=== PATIENT | male | born 1980 | race African-American/Black ===

== ENCOUNTER 2017-12-22 15:42 | Emergency (ER) | payer OTHER ==
[~2017-12-22] VITALS: Ht 172.7 cm; Wt 96.0 kg
[2017-12-22 16:02] VITALS: BP 129/70; PULSE 105; RESP 17; O2SAT 94
[2017-12-22] MEDS ORDERED: HALOPERIDOL LACTATE 5 MG/ML AMP ONE (16:02)
[2017-12-22] MEDS ORDERED: LORazepam 2 MG/ML VIAL ONE (16:03)
[2017-12-22] MEDS ORDERED: LORazepam 2 MG/ML VIAL IM ONE (16:15)
[2017-12-22] MEDS ORDERED: HALOPERIDOL LACTATE 5 MG/ML AMP IM ONE (16:15)
--- NOTE | 2017-12-22 17:24 | PD ---
HPI Chief Complaint: Psychiatric Symptoms Time Seen by Provider: 16:02 Travel History International Travel<30 days: No Contact w/Intl Traveler<30days: No Traveled to known affect area: No History of Present Illness HPI 37-year-old male came to the emergency room brought in by EMS as a Marchman act. Patient was noticed to be wandering outside unable to take care of himself. He seemed intoxicated. Patient has been combative here. He needed to be restrained for point upon arrival. I went to assess him and he was slurred speech and not making much sense. Patient is not a good historian at this point given his intoxicated state. [facility] Past Medical History Narrative Medical List of his past medical, surgical, social and family history reviewed from the nursing note. Medical History: Denies Significant Hx ?: Not Past Surgical History Surgical History: No Previous Surgery Social History Alcohol Use: Yes (DAILY) Tobacco Use: No Substance Use: No Allergies-Medications (Allergen,Severity, Reaction): Coded Allergies: amoxicillin (Verified Allergy, Unknown, 12/23/17) Comments List of his allergies reviewed from the nursing note. Reported Meds & Prescriptions Reported Meds & Active Scripts Active Active Prescriptions or Reported Medications Unobtainable Narrative Medication List of his home medications reviewed from the nursing note. Review of Systems ROS Limitations: Intoxication, Altered Mental Status Except as stated in HPI: all other systems reviewed are Neg Physical Exam Narrative GENERAL: Intoxicated, slurred speech, unable to communicate SKIN: Focused skin assessment warm/dry. HEAD: Atraumatic. Normocephalic. EYES: Pupils equal and round. No scleral icterus. No injection or drainage. ENT: No nasal bleeding or discharge. Mucous membranes pink and moist. NECK: Trachea midline. No JVD. CARDIOVASCULAR: Regular rate and rhythm. No murmur appreciated. RESPIRATORY: No accessory muscle use. Clear to auscultation. Breath sounds equal bilaterally. GASTROINTESTINAL: Abdomen soft, non-tender, nondistended. Hepatic and splenic margins not palpable. MUSCULOSKELETAL: No obvious deformities. No clubbing. No cyanosis. No edema. NEUROLOGICAL: GCS of 12. No obvious cranial nerve deficits. Motor grossly within normal limits. Slurred speech, meaningless communication PSYCHIATRIC: Unable to assess. Data Data Last Documented VS Orders Orders Haloperidol Inj (Haldol Inj) (12/22/17 16:15) Lorazepam Inj (Ativan Inj) (12/22/17 16:15) Alcohol (Ethanol) (12/22/17 16:02) Haloperidol Inj (Haldol Inj) (12/22/17 16:02) Sales Engineer Account Manager / Telemetry [id number] (12/22/17 16:03) Lorazepam Inj (Ativan Inj) (12/22/17 16:03) Labs Laboratory Tests Test 12/22/17 16:07 Ethyl Alcohol Level 425 MG/DL MDM Medical Decision Making Medical Screen Exam Complete: Yes Emergency Medical Condition: Yes Medical Record Reviewed: Yes Differential Diagnosis Alcohol intoxication Narrative Course 5:22 PM patient was given Haldol and Ativan IM so that he can have chemical restraint and his four-point restraint can be slowly taken off. Alcohol level is back and is 425. At this point the patient is sedated adequately. Patient will be just sleeping and often will be discharged when he is sober. Procedures EKG Prior to Arrival: No Diagnosis Primary Impression: Acute alcohol intoxication Qualified Codes: F10.929 - Alcohol use, unspecified with intoxication, unspecified Scripts Unable to Obtain Active Prescriptions or Reported Meds Bruce Barragan MD Dec 22, 2017 17:24
== END 2017-12-23 06:27 | disposition home or self-care (01) ==
LOC: NEPE 15:42
DX: F10.129 Alcohol abuse with intoxication, unspecified (principal); Y90.8 Blood alcohol level of 240 mg/100 ml or more
CPT/HCPCS: 80307; 96372; 99284; J1630; J2060

== ENCOUNTER 2017-12-23 06:44 | Inpatient (IN) | payer MEDICAID ==
[2017-12-23] VITALS (7 sets, daily range): BP systolic 105–148; BP diastolic 65–94; PULSE 85–109; RESP 16–18; TEMP 98.3–99.2; O2SAT 95–98
[~2017-12-23] VITALS: Ht 170.2 cm; Wt 80.4 kg
--- NOTE | 2017-12-23 07:27 | PD ---
HPI Chief Complaint: Altered Mental Status Time Seen by Provider: 07:07 Travel History International Travel<30 days: No Contact w/Intl Traveler<30days: No Traveled to known affect area: No History of Present Illness HPI 37 years old male complaining generalized malaise and weakness. Patient was seen in emergency room last night with diagnosis of alcohol intoxication. Alcohol was 425. Patient was observed overnight. Patient was started this morning. Patient complains of generalized malaise and weakness and unsteady on his feet. Patient returned back to the ED. PFSH Past Medical History Medical History: Unable to Obtain Tetanus Vaccination: > 5 Years Influenza Vaccination: No Past Surgical History Surgical History: Unable to Obtain Social History Alcohol Use: Yes (DAILY) Tobacco Use: No Substance Use: No Allergies-Medications (Allergen,Severity, Reaction): Coded Allergies: amoxicillin (Verified Allergy, Unknown, 12/23/17) Reported Meds & Prescriptions Reported Meds & Active Scripts Active Active Prescriptions or Reported Medications Unobtainable Review of Systems General / Constitutional: No: Fever Eyes: No: Visual changes HENT: No: Headaches Cardiovascular: No: Chest Pain or Discomfort Respiratory: No: Shortness of Breath Gastrointestinal: No: Abdominal Pain Genitourinary: No: Dysuria Musculoskeletal: No: Pain Skin: No Rash Neurologic: No: Weakness Psychiatric: No: Depression Endocrine: No: Polydipsia Hematologic/Lymphatic: No: Easy Bruising Physical Exam Narrative GENERAL: Well-nourished, well-developed patient. SKIN: Focused skin assessment warm/dry. HEAD: Normocephalic. EYES: No scleral icterus. No injection or drainage. NECK: Supple, trachea midline. No JVD or lymphadenopathy. CARDIOVASCULAR: Regular rate and rhythm without murmurs, gallops, or rubs. RESPIRATORY: Breath sounds equal bilaterally. No accessory muscle use. GASTROINTESTINAL: Abdomen soft, non-tender, nondistended. MUSCULOSKELETAL: No cyanosis, or edema. BACK: Nontender without obvious deformity. No CVA tenderness. Neurologic exam: Patient's lethargic. Patient answered questions to name. Patient moves all extremities well. No obvious focal neurological deficit. Data Data Last Documented VS Vital Signs Date Time Temp Pulse Resp B/P (MAP) Pulse Ox O2 Delivery O2 Flow Rate FiO2 12/23/17 08:35 85 16 105/65 (78) 95 Room Air 12/23/17 06:49 99.0 Orders Orders Complete Blood Count With Diff (12/23/17 07:27) Basic Metabolic Panel (Bmp) (12/23/17 07:27) Iv Access Insert/Monitor (12/23/17 07:27) Ecg Monitoring (12/23/17 07:27) Oximetry (12/23/17 07:27) Alcohol (Ethanol) (12/23/17 07:27) Lorazepam Inj (Ativan Inj) (12/23/17 09:00) Ct Brain W/O Iv Contrast(Rout) (12/23/17 08:47) Drug Screen, Random Urine (12/23/17 08:47) Restraints Violent (12/23/17 08:48) Haloperidol Inj (Haldol Inj) (12/23/17 09:00) Lorazepam Inj (Ativan Inj) (12/23/17 08:49) Thyroid Stimulating Hormone (12/23/17 08:50) Psych Screen (12/23/17 08:50) Lorazepam Inj (Ativan Inj) (12/23/17 10:30) Labs Laboratory Tests Test 12/23/17 07:35 12/23/17 09:07 White Blood Count 6.3 TH/MM3 Red Blood Count 4.41 MIL/MM3 Hemoglobin 13.8 GM/DL Hematocrit 39.2 % Mean Corpuscular Volume 88.8 FL Mean Corpuscular Hemoglobin 31.4 PG Mean Corpuscular Hemoglobin Concent 35.3 % Red Cell Distribution Width 14.5 % Platelet Count 233 TH/MM3 Mean Platelet Volume 7.7 FL Neutrophils (%) (Auto) 65.7 % Lymphocytes (%) (Auto) 28.3 % Monocytes (%) (Auto) 5.6 % Eosinophils (%) (Auto) 0.1 % Basophils (%) (Auto) 0.3 % Neutrophils # (Auto) 4.1 TH/MM3 Lymphocytes # (Auto) 1.8 TH/MM3 Monocytes # (Auto) 0.3 TH/MM3 Eosinophils # (Auto) 0.0 TH/MM3 Basophils # (Auto) 0.0 TH/MM3 CBC Comment DIFF FINAL Differential Comment Blood Urea Nitrogen 7 MG/DL Creatinine 0.72 MG/DL Random Glucose 169 MG/DL Calcium Level 8.1 MG/DL Sodium Level 142 MEQ/L Potassium Level 4.0 MEQ/L Chloride Level 106 MEQ/L Carbon Dioxide Level 26.8 MEQ/L Anion Gap 9 MEQ/L Estimat Glomerular Filtration Rate 150 ML/MIN Thyroid Stimulating Hormone 3rd Gen 0.178 uIU/ML Ethyl Alcohol Level 151 MG/DL Urine Opiates Screen NEG Urine Barbiturates Screen NEG Urine Amphetamines Screen NEG Urine Benzodiazepines Screen NEG Urine Cocaine Screen NEG Urine Cannabinoids Screen NEG MDM Medical Decision Making Medical Screen Exam Complete: Yes Emergency Medical Condition: Yes Medical Record Reviewed: Yes Interpretation(s) 8:37 AM. CBC within normal limit. CMP within normal limit. Glucose 169. Calcium 8.1. Alcohol 151. Differential Diagnosis Differential diagnosis including alcohol intoxication, electrolyte imbalance, dehydration. Narrative Course 37 years old male with alcohol intoxication and unsteady on his feet and generalized redness. Patient will be observed in the ED. 10:58 AM. Patient is medically cleared for psych Evaluation. Diagnosis Primary Impression: Alcohol intoxication Scripts Unable to Obtain Active Prescriptions or Reported Meds Db Monsivais MD Dec 23, 2017 07:27
[2017-12-23 07:55] LABS: AUTOMATED NEUTROPHIL # 4.1 TH/MM3 (1.8-7.7); BASOPHIL % 0.3 % (0.0-2.0); EOSINOPHIL % 0.1 % (0.0-4.0); HEMATOCRIT 39.2 % (39.0-51.0); HEMOGLOBIN 13.8 GM/DL (13.0-17.0); LYMPH % 28.3 % (9.0-44.0); LYMPHOCYTE # 1.8 TH/MM3 (1.0-4.8); MEAN CELL VOLUME 88.8 FL (80.0-100.0); MEAN CORPUSCULAR HEMOGLOBIN 31.4 PG (27.0-34.0); MEAN CORPUSCULAR HGB CONC 35.3 % (32.0-36.0); MEAN PLATELET VOLUME 7.7 FL (7.0-11.0); MONO % 5.6 % (0.0-8.0); MONOCYTE # 0.3 TH/MM3 (0-0.9); NEUT % 65.7 % (16.0-70.0); PLATELET COUNT 233 TH/MM3 (150-450); RED BLOOD COUNT 4.41 MIL/MM3 (4.50-5.90); RED CELL DISTRIBUTION WIDTH 14.5 % (11.6-17.2); WHITE BLOOD COUNT 6.3 TH/MM3 (4.0-11.0)
[2017-12-23 08:12] LABS: BICARBONATE 26.8 MEQ/L (21.0-32.0); CALCIUM 8.1 MG/DL (8.5-10.1); CREATININE 0.72 MG/DL (0.60-1.30)
[2017-12-23] MEDS ORDERED: LORazepam 2 MG/ML VIAL ONE (08:49)
[2017-12-23] MEDS ORDERED: HALOPERIDOL LACTATE 5 MG/ML AMP IM ONE (09:00)
[2017-12-23] MEDS ORDERED: LORazepam 2 MG/ML VIAL IV PUSH ONE ×2 (09:00→10:30)
--- NOTE | 2017-12-23 10:53 | RADRPT ---
EXAM DATE/TIME: 12/23/2017 10:41 [facility] COMPARISON: No previous studies available for comparison. INDICATIONS : Altered mental status RADIATION DOSE: 39.39 CTDIvol (mGy) MEDICAL HISTORY : None SURGICAL HISTORY : None. ENCOUNTER: Initial ACUITY: 1 day PAIN SCALE: Non-responsive LOCATION: cranial TECHNIQUE: Multiple contiguous axial images were obtained of the head. Using automated exposure control and adj ustment of the mA and/or kV according to patient size, radiation dose was kept as low as reasonably a chievable to obtain optimal diagnostic quality images. DICOM format image data is available electro nically for review and comparison. FINDINGS: CEREBRUM: The ventricles are normal for age. No evidence of midline shift, mass lesion, hemorrhage or acute in farction. No extra-axial fluid collections are seen. POSTERIOR FOSSA: The cerebellum and brainstem are intact. The 4th ventricle is midline. The cerebellopontine angle i s unremarkable. EXTRACRANIAL: The visualized portion of the orbits is intact. SKULL: The calvaria is intact. No evidence of skull fracture. CONCLUSION: Negative noncontrast CT Venkatesh Mohamud MD on December 23, 2017 at 10:46 Board Certified Radiologist. This report was verified electronically.
[2017-12-23] MEDS ORDERED: SODIUM CHLOR 0.9% 1000 ML INJ 1,000 ML IV ONE (13:45)
[2017-12-23] MEDS ORDERED: LORazepam 2 MG TAB PO PRN (14:00)
[2017-12-23] MEDS ORDERED: FLUMAZENIL 0.5 MG/5 ML VIAL IV PUSH PRN ×2 (14:00→14:30)
[2017-12-23] MEDS ORDERED: LORazepam 2 MG/ML VIAL IV PUSH PRN ×6 (14:00→14:30)
[2017-12-23] MEDS ORDERED: LORazepam 1 MG TAB PO PRN (14:00)
--- NOTE | 2017-12-23 14:22 | HHI.HP ---
[facility] Service [facility] Primary Care Physician Unknown Admission Diagnosis altered mental status. Alcohol intoxication. Diagnoses: Travel History International Travel<30 Days: No Contact w/Intl Traveler <30 Da: No Traveled to Known Affected Are: No Past Family Social History Allergies: Coded Allergies: amoxicillin (Verified Allergy, Unknown, 12/23/17) Physical Exam Vital Signs Vital Signs Date Time Temp Pulse Resp B/P (MAP) Pulse Ox O2 Delivery O2 Flow Rate FiO2 12/23/17 13:02 90 16 109/68 (82) 96 Room Air 12/23/17 08:35 85 16 105/65 (78) 95 Room Air 12/23/17 07:12 88 18 96 Room Air 12/23/17 06:49 99.0 85 16 130/83 (99) 98 Physical Exam GENERAL: This is a well-nourished, well-developed patient, in no apparent distress. SKIN: No rashes, ecchymoses or lesions. Cool and dry. HEAD: Atraumatic. Normocephalic. No temporal or scalp tenderness. EYES: Pupils equal round and reactive. Extraocular motions intact. No scleral icterus. No injection or drainage. ENT: Nose without bleeding, purulent drainage or septal hematoma. Throat without erythema, tonsillar hypertrophy or exudate. Uvula midline. Airway patent. NECK: Trachea midline. No JVD or lymphadenopathy. Supple, nontender, no meningeal signs. CARDIOVASCULAR: Regular rate and rhythm without murmurs, gallops, or rubs. RESPIRATORY: Clear to auscultation. Breath sounds equal bilaterally. No wheezes , rales, or rhonchi. GASTROINTESTINAL: Abdomen soft, non-tender, nondistended. No hepato-splenomegaly , or palpable masses. No guarding. MUSCULOSKELETAL: Extremities without clubbing, cyanosis, or edema. No joint tenderness, effusion, or edema noted. No calf tenderness. Negative Homans sign bilaterally. NEUROLOGICAL: Awake and alert. Cranial nerves II through XII intact. Motor and sensory grossly within normal limits. Five out of 5 muscle strength in all muscle groups. Normal speech. Laboratory Laboratory Tests Test 12/23/17 07:35 12/23/17 09:07 White Blood Count 6.3 Red Blood Count 4.41 Hemoglobin 13.8 Hematocrit 39.2 Mean Corpuscular Volume 88.8 Mean Corpuscular Hemoglobin 31.4 Mean Corpuscular Hemoglobin Concent 35.3 Red Cell Distribution Width 14.5 Platelet Count 233 Mean Platelet Volume 7.7 Neutrophils (%) (Auto) 65.7 Lymphocytes (%) (Auto) 28.3 Monocytes (%) (Auto) 5.6 Eosinophils (%) (Auto) 0.1 Basophils (%) (Auto) 0.3 Neutrophils # (Auto) 4.1 Lymphocytes # (Auto) 1.8 Monocytes # (Auto) 0.3 Eosinophils # (Auto) 0.0 Basophils # (Auto) 0.0 CBC Comment DIFF FINAL Differential Comment Blood Urea Nitrogen 7 Creatinine 0.72 Random Glucose 169 Calcium Level 8.1 Sodium Level 142 Potassium Level 4.0 Chloride Level 106 Carbon Dioxide Level 26.8 Anion Gap 9 Estimat Glomerular Filtration Rate 150 Thyroid Stimulating Hormone 3rd Gen 0.178 Ethyl Alcohol Level 151 Urine Opiates Screen NEG Urine Barbiturates Screen NEG Urine Amphetamines Screen NEG Urine Benzodiazepines Screen NEG Urine Cocaine Screen NEG Urine Cannabinoids Screen NEG Result Diagram: 12/23/17 0735 12/23/1735 Caprini VTE Risk Assessment Caprini Risk Assessment Model Point Value = 1 Point Value = 2 Point Value = 3 Point Value = 5 Age 41-60 Minor surgery BMI > 25 kg/m2 Swollen legs Varicose veins or History of unexplained or recurrent spontaneous Oral contraceptives or hormone replacement Sepsis (< 1 month) Serious lung disease, including pneumonia (< 1 month) Abnormal pulmonary function Acute myocardial infarction Congestive heart failure (< 1 month) History of inflammatory bowel disease Medical patient at bed rest Age 61-74 Arthroscopic surgery Major open surgery (> 45 min) Laparoscopic surgery (> 45 min) Malignancy Confined to bed (> 72 hours) Immobilizing plaster cast Central venous access Age >= 75 History of VTE Family history of VTE Factor V Leiden Prothrombin [id number] Lupus anticoagulant Anticardiolipin antibodies Elevated serum homocysteine Heparin-induced thrombocytopenia Other congenital or acquired thrombophilia Stroke (< 1 month) Elective arthroplasty Hip, pelvis, or leg fracture Acute spinal cord injury (< 1 month) Prophylaxis Regimen Total Risk Factor Score Risk Level Prophylaxis Regimen 0-1 Low Early ambulation 2 Moderate Order ONE of the following: *Sequential Compression Device (SCD) *Heparin 5000 units SQ BID 3-4 Higher Order ONE of the following medications: *Heparin 5000 units SQ TID *Enoxaparin/Lovenox 40 mg SQ daily (WT < 150 kg, CrCl > 30 mL/min) *Enoxaparin/Lovenox 30 mg SQ daily (WT < 150 kg, CrCl > 10-29 mL/min) *Enoxaparin/Lovenox 30 mg SQ BID (WT < 150 kg, CrCl > 30 mL/min) AND/OR *Sequential Compression Device (SCD) 5 or more Highest Order ONE of the following medications: *Heparin 5000 units SQ TID (Preferred with Epidurals) *Enoxaparin/Lovenox 40 mg SQ daily (WT < 150 kg, CrCl > 30 mL/min) *Enoxaparin/Lovenox 30 mg SQ daily (WT < 150 kg, CrCl > 10-29 mL/min) *Enoxaparin/Lovenox 30 mg SQ BID (WT < 150 kg, CrCl > 30 mL/min) AND *Sequential Compression Device (SCD) Marc Galeana DO Dec 23, 2017 14:22
[2017-12-23] MEDS ORDERED: SENNOSIDES 8.6 MG TAB PO PRN (14:30)
[2017-12-23] MEDS ORDERED: LACTULOSE SYRUP 20 GM/30 ML CUP PO PRN (14:30)
[2017-12-23] MEDS ORDERED: SODIUM CHLORIDE 0.9% FLUSH 10 ML FLUSH IV FLUSH PRN (14:30)
[2017-12-23] MEDS ORDERED: ONDANSETRON HCL 4 MG/2 ML VIAL IVP PRN (14:30)
[2017-12-23] MEDS ORDERED: NALOXONE HCL 0.4 MG/ML AMP IV PUSH PRN (14:30)
[2017-12-23] MEDS ORDERED: BISACODYL 10 MG SUPP RECTAL PRN (14:30)
[2017-12-23] MEDS ORDERED: MAGNESIUM HYDROXIDE SUSP 30 ML CUP PO PRN (14:30)
[2017-12-23] MEDS ORDERED: THIAMINE HCL 200 MG/2 ML VIAL IM ONE (15:00)
[2017-12-23] MEDS: SODIUM CHLOR 0.9% 1000 ML INJ 1,000 ML IV SCH (16:28)
[2017-12-23] MEDS: LORazepam 2 MG/ML VIAL IV PUSH PRN ×2 (20:03→21:45)
[2017-12-23] MEDS: SODIUM CHLORIDE 0.9% FLUSH 10 ML FLUSH IV FLUSH SCH (21:44)
[2017-12-23] MEDS ORDERED: CHLORHEXIDINE GLUCONATE 2 % 1 PACK (2 CLOTHS)(extra cloths) TOPICAL PRN (22:00)
--- NOTE | 2017-12-23 23:13 | HHI.HP ---
[facility] Admission Diagnosis altered mental status. Alcohol intoxication. Diagnoses: Chief Complaint: Alcohol intoxication. Travel History International Travel<30 Days: No Contact w/Intl Traveler <30 Da: No Traveled to Known Affected Are: No History of Present Illness Mr. Blake is a 37 year old male with a history of alcohol abuse who presented to the ED for the second time in two days due to alcohol intoxication. He complained of generalized weakness, gain problems. At the time of this interview around 2:45PM on 12/23/2017, patient is resting in bed, sleepy. He wakes up on verbal commands and follows commands. However, he is not able to participate in interview much. He does say he feels weak and has pain all over. On specific questioning, he does deny any breathing difficulty. Review of Systems Except as stated in HPI: all other systems reviewed are Neg Past Family Social History Past Medical History No significant medical history. Past Surgical History No previous surgery. Reported Medications None. Allergies: Coded Allergies: amoxicillin (Verified Allergy, Unknown, 12/23/17) Family History Unable to obtain. Social History from chart review: Alcohol Use: Yes (DAILY) Tobacco Use: No Substance Use: No Physical Exam Vital Signs Vital Signs Date Time Temp Pulse Resp B/P (MAP) Pulse Ox O2 Delivery O2 Flow Rate FiO2 12/23/17 21:00 98.3 94 18 142/94 (110) 97 12/23/17 18:15 109 18 98 Room Air 12/23/17 16:28 99.2 105 16 148/66 (93) 98 Room Air 12/23/17 14:40 95 21 12/23/17 13:02 90 16 109/68 (82) 96 Room Air 12/23/17 08:35 85 16 105/65 (78) 95 Room Air 12/23/17 07:12 88 18 96 Room Air 12/23/17 06:49 99.0 85 16 130/83 (99) 98 Physical Exam GENERAL: This is a well-nourished, well-developed patient, lying in bed, somewhat lethargic, follows simple commands, speaks a few words. SKIN: No rashes, ecchymoses or lesions. Warm and dry. HEAD: Atraumatic. Normocephalic. No temporal or scalp tenderness. EYES: Pupils equal round and reactive. No injection or drainage. ENT: Nose without bleeding, purulent drainage or septal hematoma. Airway patent. NECK: Trachea midline. No lymphadenopathy. Supple, nontender, no meningeal signs. CARDIOVASCULAR: Tachycardic, regular rhythm without murmurs, gallops, or rubs. No JVD. RESPIRATORY: Clear to auscultation. Breath sounds equal bilaterally. No wheezes , rales, or rhonchi. No accessory muscle use. GASTROINTESTINAL: Abdomen soft, non-tender, nondistended. No guarding. MUSCULOSKELETAL: Extremities without clubbing, cyanosis, or edema. NEUROLOGICAL: Sleepy, does not converse much. Follows simple commands. Laboratory Laboratory Tests Test 12/23/17 07:35 12/23/17 09:07 12/23/17 19:36 White Blood Count 6.3 Red Blood Count 4.41 Hemoglobin 13.8 Hematocrit 39.2 Mean Corpuscular Volume 88.8 Mean Corpuscular Hemoglobin 31.4 Mean Corpuscular Hemoglobin Concent 35.3 Red Cell Distribution Width 14.5 Platelet Count 233 Mean Platelet Volume 7.7 Neutrophils (%) (Auto) 65.7 Lymphocytes (%) (Auto) 28.3 Monocytes (%) (Auto) 5.6 Eosinophils (%) (Auto) 0.1 Basophils (%) (Auto) 0.3 Neutrophils # (Auto) 4.1 Lymphocytes # (Auto) 1.8 Monocytes # (Auto) 0.3 Eosinophils # (Auto) 0.0 Basophils # (Auto) 0.0 CBC Comment DIFF FINAL Differential Comment Blood Urea Nitrogen 7 Creatinine 0.72 Random Glucose 169 Calcium Level 8.1 Sodium Level 142 Potassium Level 4.0 Chloride Level 106 Carbon Dioxide Level 26.8 Anion Gap 9 Estimat Glomerular Filtration Rate 150 Magnesium Level 2.6 Thyroid Stimulating Hormone 3rd Gen 0.178 Ethyl Alcohol Level 151 Urine Opiates Screen NEG Urine Barbiturates Screen NEG Urine Amphetamines Screen NEG Urine Benzodiazepines Screen NEG Urine Cocaine Screen NEG Urine Cannabinoids Screen NEG Nasal Screen MRSA (PCR) MRSA NOT DETECTED Result Diagram: 12/23/17 0735 12/23/17 0735 Imaging Last Impressions Head CT 12/23/17 0847 Signed Impressions: Service Date/Time: December 10:41 - CONCLUSION: Negative noncontrast CT MD Deshaun Gonzales VTE Risk Assessment Deshaun VTE Risk Assessment: No/Low Risk (score <= 1) Deshaun Risk Assessment Model Point Value = 1 Point Value = 2 Point Value = 3 Point Value = 5 Age 41-60 Minor surgery BMI > 25 kg/m2 Swollen legs Varicose veins or History of unexplained or recurrent spontaneous Oral contraceptives or hormone replacement Sepsis (< 1 month) Serious lung disease, including pneumonia (< 1 month) Abnormal pulmonary function Acute myocardial infarction Congestive heart failure (< 1 month) History of inflammatory bowel disease Medical patient at bed rest Age 61-74 Arthroscopic surgery Major open surgery (> 45 min) Laparoscopic surgery (> 45 min) Malignancy Confined to bed (> 72 hours) Immobilizing plaster cast Central venous access Age >= 75 History of VTE Family history of VTE Factor V Leiden Prothrombin [id number] Lupus anticoagulant Anticardiolipin antibodies Elevated serum homocysteine Heparin-induced thrombocytopenia Other congenital or acquired thrombophilia Stroke (< 1 month) Elective arthroplasty Hip, pelvis, or leg fracture Acute spinal cord injury (< 1 month) Prophylaxis Regimen Total Risk Factor Score Risk Level Prophylaxis Regimen 0-1 Low Early ambulation 2 Moderate Order ONE of the following: *Sequential Compression Device (SCD) *Heparin 5000 units SQ BID 3-4 Higher Order ONE of the following medications: *Heparin 5000 units SQ TID *Enoxaparin/Lovenox 40 mg SQ daily (WT < 150 kg, CrCl > 30 mL/min) *Enoxaparin/Lovenox 30 mg SQ daily (WT < 150 kg, CrCl > 10-29 mL/min) *Enoxaparin/Lovenox 30 mg SQ BID (WT < 150 kg, CrCl > 30 mL/min) AND/OR *Sequential Compression Device (SCD) 5 or more Highest Order ONE of the following medications: *Heparin 5000 units SQ TID (Preferred with Epidurals) *Enoxaparin/Lovenox 40 mg SQ daily (WT < 150 kg, CrCl > 30 mL/min) *Enoxaparin/Lovenox 30 mg SQ daily (WT < 150 kg, CrCl > 10-29 mL/min) *Enoxaparin/Lovenox 30 mg SQ BID (WT < 150 kg, CrCl > 30 mL/min) AND *Sequential Compression Device (SCD) Assessment and Plan Problem List: (1) Alcohol intoxication ICD Code: F10.929 - Alcohol use, unspecified with intoxication, unspecified Status: Acute Assessment and Plan Mr. Blake returned to the hospital after an evaluation on 12/22/2017 due to generalized weakness, alcohol intoxication. Patient's alcohol level was over 400 on 12/22/2017 and today (12/23/2017) 151. - Acute alcohol intoxication - Alcohol withdrawal - Patient is currently maintaining his airway. - However, worsening of his clinical condition to require intubation remains a possibility. - He follows simple commands. Denies any shortness of breath, not using any accessory muscles. - Given his clinical condition, it would be reasonable to observe him in the ICU today. - If improved, we can transfer him to the medical floor on 12/24/2017. - Start CIWA protocol. - Mg 2.6. Start Thiamine IV 100mg Qday X 3 and folic acid if possible. - Librium PRN. Full code. Physician Certification 2 Midnight Certification Type: Admission for Inpatient Services Order for Inpatient Services The services are ordered in accordance with Medicare regulations or non- Medicare payer requirements, as applicable. In the case of services not specified as inpatient-only, they are appropriately provided as inpatient services in accordance with the 2-midnight benchmark. Estimated LOS (days): 2 days is the estimated time the patient will need to remain in the hospital, assuming treatment plan goals are met and no additional complications. Post-Hospital Plan: Home Marc Galeana DO Dec 23, 2017 23:13
[2017-12-24] VITALS (19 sets, daily range): BP systolic 139–185; BP diastolic 70–106; PULSE 91–129; RESP 16–39; TEMP 97.8–98.8; O2SAT 6–97
[2017-12-24] MEDS: SODIUM CHLOR 0.9% 1000 ML INJ 1,000 ML IV SCH ×3 (00:15→21:00)
[2017-12-24] MEDS: LORazepam 2 MG/ML VIAL IV PUSH PRN ×8 (00:15→20:34)
[2017-12-24] MEDS: CHLORHEXIDINE GLUCONATE 2 % 1 PACK (2 CLOTHS)(taper/protocol) TOPICAL SCH (04:00)
[2017-12-24 06:02] LABS: AUTOMATED NEUTROPHIL # 7.6 TH/MM3 (1.8-7.7); BASOPHIL % 0.4 % (0.0-2.0); EOSINOPHIL # 0.1 TH/MM3 (0-0.4); EOSINOPHIL % 0.6 % (0.0-4.0); HEMATOCRIT 41.5 % (39.0-51.0); HEMOGLOBIN 14.4 GM/DL (13.0-17.0); LYMPHOCYTE # 2.1 TH/MM3 (1.0-4.8); MEAN CELL VOLUME 89.5 FL (80.0-100.0); MEAN CORPUSCULAR HEMOGLOBIN 31.1 PG (27.0-34.0); MEAN CORPUSCULAR HGB CONC 34.7 % (32.0-36.0); MEAN PLATELET VOLUME 7.9 FL (7.0-11.0); MONO % 6.7 % (0.0-8.0); MONOCYTE # 0.7 TH/MM3 (0-0.9); NEUT % 72.3 % (16.0-70.0); PLATELET COUNT 207 TH/MM3 (150-450); RED BLOOD COUNT 4.64 MIL/MM3 (4.50-5.90); RED CELL DISTRIBUTION WIDTH 14.6 % (11.6-17.2); WHITE BLOOD COUNT 10.5 TH/MM3 (4.0-11.0)
[2017-12-24 06:24] LABS: BICARBONATE 25.7 MEQ/L (21.0-32.0); CALCIUM 8.7 MG/DL (8.5-10.1); CREATININE 0.95 MG/DL (0.60-1.30)
[2017-12-24] MEDS: FOLIC ACID 1 MG TAB PO SCH (08:57)
[2017-12-24] MEDS: chlordiazePOXIDE 25 MG CAP PO PRN ×2 (08:57→20:32)
[2017-12-24] MEDS: SODIUM CHLORIDE 0.9% FLUSH 10 ML FLUSH IV FLUSH SCH ×2 (08:58→21:00)
[2017-12-24] MEDS ORDERED: THIAMINE HCL 200 MG/2 ML VIAL IM SCH (09:00)
--- NOTE | 2017-12-24 11:19 | PD.PSY.CON ---
Provisional Diagnosis Admission Date Dec 23, 2017 at 14:53 [place] I. 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 [place] II. Deferred [place] III. No significant medical history History of Present Illness Service Psychiatry Consult Requested By Critical care team Reason for Consult Disorganized behavior Primary Care Physician Unknown HPI The patient is a is a 37 year-old man, domiciled in [place] with his , employed, with psychiatric history of bipolar disorder, alcohol use disorder, 2 previous psychiatric hospitalizations, last hospitalization was in 2017 in [place], no previous suicidal attempts, he also have history of opiates and methamphetamine use disorder in partial remission, he has been in methadone programs in the past, he has active outpatient care in [place] with Dr. Gusman, he is in Latuda 120 mg and Ativan 2 mg twice a day, he is noncompliant with medications, no significant medical history, as per his mother, the patient was here in [place] completing a rehabilitation program, but he eloped 2 days ago and he has been in a binge of alcohol, who presented to the ED for the second time in two days due to alcohol intoxication. He complained of generalized weakness, gait problems. She was agitated and aggressive in the ICU needing ETO. Consulted to psychiatry to address potential psychosis. Chart was reviewed. Collateral information from his mother: Nereida Blake [phone], was obtained. On psychiatric evaluation the patient is calm, superficially cooperative, he is logical, coherent and relevant. The patient reports that he doesn't exactly know the reason he ended up in the hospital. He says that he was in a rehabilitation program, he completed this program, but after he was discharged he went back to drink alcohol and he has been in a binge of alcohol for the last 2 days. He says that he blacked out yesterday. Right now he feels much better. He denies mood symptoms, he denies depression, anhedonia, he denies hopelessness and helplessness. He says that he was ready to go back home to reunion with his and his mother. At this moment he denies suicidal and homicidal ideation, he denies visual and auditory hallucinations. The patient is fully oriented 3, there is no attention deficit, there is no fluctuation of consciousness or confusion at this moment. The patient reports that he has been in a lot of drugs in the past, he was in opiates, methamphetamines, cannabis and cocaine, but he has been over a month without using any drugs or alcohol. Review of Systems Constitutional: DENIES: Diaphoretic episodes, Fatigue, Fever, Weight gain, Weight loss, Chills, Dizziness, Change in appetite, Night Sweats Endocrine: DENIES: Heat/cold intolerance, Polydipsia, Polyuria, Polyphagia Eyes: DENIES: Blurred vision, Diplopia, Eye inflammation, Eye pain, Vision loss , Photosensitivity, Double Vision Ears, nose, mouth, throat: DENIES: Tinnitus, Hearing loss, Vertigo, Nasal discharge, Oral lesions, Throat pain, Hoarseness, Ear Pain, Running Nose, Epistaxis, Sinus Pain, Toothache, Odynophagia Respiratory: DENIES: Apneas, Cough, Snoring, Wheezing, Hemoptysis, Sputum production, Shortness of breath Cardiovascular: DENIES: Chest pain, Palpitations, Syncope, Dyspnea on Exertion , PND, Lower Extremity Edema, Orthopnea, Claudication Gastrointestinal: DENIES: Abdominal pain, Black stools, Bloody stools, Constipation, Diarrhea, Nausea, Vomiting, Difficulty Swallowing, Anorexia Genitourinary: DENIES: Sexual dysfunction, Urinary frequency, Urinary incontinence, Urgency, Hematuria, Dysuria, Nocturia, Penile Discharge, Testicular Pain, Testicular Swelling Musculoskeletal: DENIES: Joint pain, Muscle aches, Stiffness, Joint Swelling, Back pain, Neck pain Integumentary: DENIES: Abnormal pigmentation, Nail changes, Pruritus, Rash Hematologic/lymphatic: DENIES: Bruising, Lymphadenopathy Immunologic/allergic: DENIES: Eczema, Urticaria Neurologic: DENIES: Abnormal gait, Headache, Localized weakness, Paresthesias, Seizures, Speech Problems, Tremor, Poor Balance Psychiatric: DENIES: Anxiety, Confusion, Mood changes, Depression, Hallucinations, Agitation, Suicidal Ideation, Homicidal Ideation, Delusions Past Family Social History Coded Allergies: amoxicillin (Verified Allergy, Unknown, 12/23/17) Unable to Obtain Active Prescriptions or Reported Meds Current Medications Medications (Trade) Dose Ordered Sig/Davon Route Start Time Stop Time Status Last Admin Sodium Chloride 1,000 ml @ 100 mls/hr Q10H IV 12/23/17 15:00 12/24/17 00:15 (NS Flush) 2 ml UNSCH PRN IV FLUSH 12/23/17 14:30 (NS Flush) 2 ml BID IV FLUSH 12/23/17 21:00 12/24/17 08:58 (Tylenol) 650 mg Q4H PRN PO 12/23/17 14:30 (Zofran Inj) 4 mg Q6H PRN IVP 12/23/17 14:30 (Narcan Inj) 0.4 mg UNSCH PRN IV PUSH 12/23/17 14:30 (Milk Of Magnesia Liq) 30 ml Q12H PRN PO 12/23/17 14:30 (Senokot) 17.2 mg Q12H PRN PO 12/23/17 14:30 (Dulcolax Supp) 10 mg DAILY PRN RECTAL 12/23/17 14:30 (Lactulose Liq) 30 ml DAILY PRN PO 12/23/17 14:30 (Romazicon Inj) 0.2 mg Q1M PRN IV PUSH 12/23/17 14:30 (Ativan) 1 mg Q4H PRN PO 12/23/17 14:30 (Ativan Inj) 1 mg Q4H PRN IV PUSH 12/23/17 14:30 12/24/17 09:27 (Ativan) 2 mg Q2H PRN PO 12/23/17 14:30 (Ativan Inj) 2 mg Q2H PRN IV PUSH 12/23/17 14:30 12/24/17 04:15 (Ativan Inj) 2 mg Q1H PRN IV PUSH 12/23/17 14:30 12/24/17 10:55 (Ativan Inj) 2 mg Q15M PRN IV PUSH 12/23/17 14:30 (Librium) 25 mg TID PRN PO 12/23/17 14:30 12/24/17 08:57 (Thiamine Inj) 100 mg DAILY IM 12/24/17 09:00 12/26/17 08:59 12/24/17 10:54 (Folate) 1 mg DAILY PO 12/24/17 09:00 12/24/17 08:57 Miscellaneous Information Patient in critical care unit? Ass... 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 2) Family support Physical Exam No tremors, no EPS, no withdrawal symptoms present Vital Signs Vital Signs Date Time Temp Pulse Resp B/P (MAP) Pulse Ox O2 Delivery O2 Flow Rate FiO2 12/24/17 08:16 96 21 12/24/17 04:00 98.8 91 18 148/95 (112) 12/23/17 18:15 Room Air I/O 12/24/17 12/24/17 12/25/17 08:00 16:00 00:00 Intake Total 1120 ml Balance 1120 ml Lab Results Test 12/23/17 19:36 12/24/17 04:53 Nasal Screen MRSA (PCR) MRSA NOT DETECTED White Blood Count 10.5 TH/MM3 Red Blood Count 4.64 MIL/MM3 Hemoglobin 14.4 GM/DL Hematocrit 41.5 % Mean Corpuscular Volume 89.5 FL Mean Corpuscular Hemoglobin 31.1 PG Mean Corpuscular Hemoglobin Concent 34.7 % Red Cell Distribution Width 14.6 % Platelet Count 207 TH/MM3 Mean Platelet Volume 7.9 FL Neutrophils (%) (Auto) 72.3 % Lymphocytes (%) (Auto) 20.0 % Monocytes (%) (Auto) 6.7 % Eosinophils (%) (Auto) 0.6 % Basophils (%) (Auto) 0.4 % Neutrophils # (Auto) 7.6 TH/MM3 Lymphocytes # (Auto) 2.1 TH/MM3 Monocytes # (Auto) 0.7 TH/MM3 Eosinophils # (Auto) 0.1 TH/MM3 Basophils # (Auto) 0.0 TH/MM3 CBC Comment DIFF FINAL Differential Comment Blood Urea Nitrogen 8 MG/DL Creatinine 0.95 MG/DL Random Glucose 89 MG/DL Calcium Level 8.7 MG/DL Sodium Level 144 MEQ/L Potassium Level 3.8 MEQ/L Chloride Level 109 MEQ/L Carbon Dioxide Level 25.7 MEQ/L Anion Gap 9 MEQ/L Estimat Glomerular Filtration Rate 109 ML/MIN Mental Status Examination Appearance: Appropriate Consciousness: Alert Orientation: x4 Motor Activity: Normal gait Speech: Unremarkable Language: Adequate Fund of Knowledge: Adequate Attention and Concentration: Adequate Memory: Unremarkable Mood: Appropriate Affect: Appropriate Thought Process & Associations: Intact Thought Content: Appropriate Hallucination Type: None Delusion Type: None Suicidal Ideation: No Suicidal Plan: No Suicidal Intention: No Homicidal Ideation: No Homicidal Plan: No Homicidal Intention: No Insight: Adequate Judgment: Adequate Assessment & Plan Problem List: (1) Alcohol abuse with alcohol-induced mood disorder ICD Codes: F10.14 - Alcohol abuse with alcohol-induced mood disorder Assessment & Plan: On psychiatric evaluation today the patient is calm, cooperative, he denies symptomatology of depression, anxiety, herbie or psychosis. He denies visual and auditory hallucinations, he denies suicidal and homicidal ideation. The patient is logical, his coherent and relevant. Oriented 3. No attention deficit, no fluctuation of consciousness, no loosening of associations, no paranoia, no agitation, no aggressive behavior present at this moment. Apparently, the patient has recently completed a rehabilitation program, but right after been discharged he engage in a binge of alcohol. The patient has history of bipolar disorder, previous psychiatric hospitalizations, no suicidal attempts, he has been noncompliant with psychotropics. He also has history of opiates, cocaine, methamphetamines use disorder, he claims that he is in remission. He does not meet criteria for involuntary psychiatric admission at this moment. Continue CIWA protocol. Patient has a high risk for delirium/agitation/aggressive behavior secondary to alcohol withdrawal. Can medicate with Haldol 5 mg IM every 8 hours when necessary aggressive behavior and agitation. Brief supportive psychotherapy, motivation and psychoeducation provided. Patient benefit of detox/ rehabilitation of alcohol. We'll follow-up. Assessment & Plan Estimated LOS: Dany Mckinney MD Dec 24, 2017 11:19
--- NOTE | 2017-12-24 14:55 | HHI.PR ---
Subjective Remarks Patient resting in bed in the ICU, looks lethargic, tachycardic seems to be going into alcohol withdrawal Heart rate between 110-120 He denied having chest pain but he doesn't seem to be reliable as a historian Objective Vitals Vital Signs Date Time Temp Pulse Resp B/P (MAP) Pulse Ox O2 Delivery O2 Flow Rate FiO2 12/24/17 08:16 96 21 12/24/17 04:00 98.8 91 18 148/95 (112) 95 12/24/17 00:00 98.0 93 16 140/90 (107) 93 12/23/17 21:00 98.3 94 18 142/94 (110) 97 12/23/17 18:15 109 18 98 Room Air 12/23/17 16:28 99.2 105 16 148/66 (93) 98 Room Air I/O 12/23/17 12/23/17 12/23/17 12/24/17 12/24/17 12/24/17 07:00 15:00 23:00 07:00 15:00 23:00 Intake Total 1000 ml 1120 ml Balance 1000 ml 1120 ml Intake Oral 120 ml IV Total 1000 ml 1000 ml # Voids 1 2 # Bowel Movements 2 Result Diagram: 12/24/17 0453 12/24/17 0453 Objective Remarks - GENERAL: This is a well-nourished 37 years old male looks lethargic CARDIOVASCULAR: Regular tachycardic without murmurs, gallops, or rubs. RESPIRATORY: Fair air entry bilaterally. No wheezes, rales, or rhonchi. GASTROINTESTINAL: Abdomen soft, non-tender, nondistended. Normal active bowel sounds MUSCULOSKELETAL: Extremities without clubbing, cyanosis, or edema. NEURO: Lethargic. Moves all ext x4 A/P Problem List: (1) Alcohol intoxication ICD Code: F10.929 - Alcohol use, unspecified with intoxication, unspecified Status: Acute Assessment and Plan Mr. Blake returned to the hospital after an evaluation on 12/22/2017 due to generalized weakness, alcohol intoxication. Patient's alcohol level was over 400 on 12/22/2017 and today (12/23/2017) 151. - Acute alcohol intoxication - Acute Alcohol withdrawal watch out for DT - Patient is currently maintaining his airway. - However, worsening of his clinical condition to require intubation remains a possibility. -No signs of respiratory distress -Continue observing in ICU today. -Stat applying CIWA protocol including Ativan - Mg 2.6. Start Thiamine IV 100mg Qday X 3 and folic acid if possible. - Librium PRN. Discussed with the nurse Rosario Campos MD Dec 24, 2017 14:55
[2017-12-24] MEDS: HALOPERIDOL LACTATE 5 MG/ML AMP IM PRN (21:39)
[2017-12-25] VITALS (8 sets, daily range): BP systolic 121–138; BP diastolic 80–95; PULSE 80–106; RESP 17–23; TEMP 98–98.7; O2SAT 96–100
[2017-12-25] MEDS: HALOPERIDOL LACTATE 5 MG/ML AMP IM PRN ×2 (00:14→22:42)
[2017-12-25] MEDS: CHLORHEXIDINE GLUCONATE 2 % 1 PACK (2 CLOTHS)(taper/protocol) TOPICAL SCH (04:00)
[2017-12-25] MEDS: SODIUM CHLOR 0.9% 1000 ML INJ 1,000 ML IV SCH ×2 (06:32→17:00)
[2017-12-25] MEDS: LORazepam 2 MG/ML VIAL IV PUSH PRN ×8 (07:27→22:42)
[2017-12-25] MEDS: LORazepam 2 MG TAB PO PRN (08:57)
[2017-12-25] MEDS: FOLIC ACID 1 MG TAB PO SCH (08:58)
[2017-12-25] MEDS: SODIUM CHLORIDE 0.9% FLUSH 10 ML FLUSH IV FLUSH SCH ×2 (09:00→20:58)
[2017-12-25] MEDS: chlordiazePOXIDE 25 MG CAP PO PRN ×2 (10:19→17:01)
[2017-12-25] MEDS ORDERED: THIAMINE HCL 100 MG TAB PO SCH (11:15)
--- NOTE | 2017-12-25 16:35 | HHI.PR ---
Subjective Remarks Patient looks much better than yesterday, he is awake alert oriented, heart rate in the 90s however he is agitated and in restraint Discussed with the nurse extensively he doesn't thing patient is ready to be moved to the regular floor will continue close monitoring, Objective Vitals Vital Signs Date Time Temp Pulse Resp B/P (MAP) Pulse Ox O2 Delivery O2 Flow Rate FiO2 12/25/17 12:00 98.5 90 20 129/90 (103) 12/25/17 08:34 96 12/25/17 08:00 98.0 84 17 129/95 (106) 12/25/17 04:00 98.3 80 19 121/81 (94) 100 12/25/17 00:00 98.2 88 18 129/84 (99) 12/24/17 20:15 105 26 155/72 (99) 12/24/17 20:00 98.0 101 25 185/106 (132) 12/24/17 19:00 111 24 151/78 (102) 12/24/17 18:01 129 26 173/87 (115) 12/24/17 17:00 113 24 147/70 (95) I/O 12/24/17 12/24/17 12/24/17 12/25/17 12/25/17 12/25/17 07:00 15:00 23:00 07:00 15:00 23:00 Intake Total 1120 ml 1000 ml 1000 ml 1472 ml Output Total 400 ml Balance 1120 ml 1000 ml 1000 ml 1072 ml Intake Oral 120 ml 600 ml 480 ml IV Total 1000 ml 1000 ml 400 ml 992 ml Output Urine Total 400 ml # Voids 2 5 # Bowel Movements 2 5 0 Result Diagram: 12/24/17 0453 12/24/17 0453 Objective Remarks - GENERAL: This is a well-nourished 37 years old in no acute distress CARDIOVASCULAR: Regular tachycardic without murmurs, gallops, or rubs. RESPIRATORY: Fair air entry bilaterally. No wheezes, rales, or rhonchi. GASTROINTESTINAL: Abdomen soft, non-tender, nondistended. Normal active bowel sounds MUSCULOSKELETAL: Extremities without clubbing, cyanosis, or edema. NEURO: Awake alert oriented 3 Moves all ext x4 A/P Problem List: (1) Alcohol intoxication ICD Code: F10.929 - Alcohol use, unspecified with intoxication, unspecified Status: Acute Assessment and Plan Mr. Blake returned to the hospital after an evaluation on 12/22/2017 due to generalized weakness, alcohol intoxication. Patient's alcohol level was over 400 on 12/22/2017 and today (12/23/2017) 151. - Acute alcohol intoxication - Acute Alcohol withdrawal watch out for DT - Patient is currently maintaining his airway. - However, worsening of his clinical condition to require intubation remains a possibility. -No signs of respiratory distress -Continue observing in ICU today. -Stat applying CIWA protocol including Ativan - Mg 2.6. Start Thiamine IV 100mg Qday X 3 and folic acid if possible. - Librium PRN. 12/25: Tachycardia improved now in the 90s, awake alert oriented mental status is better however he gets agitated and he isn't restrained Discussed with the nurse in ICU Rosario Campos MD Dec 25, 2017 16:35
[2017-12-26] VITALS (7 sets, daily range): BP systolic 111–136; BP diastolic 69–84; PULSE 88–96; RESP 15–23; TEMP 98.2–99.6; O2SAT 96
[2017-12-26] MEDS: LORazepam 2 MG/ML VIAL IV PUSH PRN ×2 (00:50→19:35)
[2017-12-26] MEDS: CHLORHEXIDINE GLUCONATE 2 % 1 PACK (2 CLOTHS)(taper/protocol) TOPICAL SCH (04:00)
[2017-12-26] MEDS: FOLIC ACID 1 MG TAB PO SCH (08:36)
[2017-12-26] MEDS: LORazepam 2 MG TAB PO PRN ×5 (08:36→17:26)
[2017-12-26] MEDS: SODIUM CHLORIDE 0.9% FLUSH 10 ML FLUSH IV FLUSH SCH ×2 (09:00→19:35)
[2017-12-26] MEDS: ACETAMINOPHEN 325 MG TAB PO PRN ×2 (12:38→17:55)
--- NOTE | 2017-12-26 13:05 | HHI.PR ---
Subjective Remarks patient resting in bed, he still needs to be on Latuda , Lamictal and other medication for bipolar I discussed with the nurse the patient still get agitated he needs restraints, heart rate better in the 90s Objective Vitals Vital Signs Date Time Temp Pulse Resp B/P (MAP) Pulse Ox O2 Delivery O2 Flow Rate FiO2 12/26/17 08:00 98.5 88 18 122/78 (93) 12/26/17 07:52 96 12/26/17 04:00 98.7 94 22 111/69 (83) 12/26/17 00:00 98.6 96 23 128/84 (99) 12/25/17 20:00 98.7 106 23 138/83 (101) 12/25/17 19:31 98 21 12/25/17 16:00 98.0 98 20 122/80 (94) 96 I/O 12/25/17 12/25/17 12/25/17 12/26/17 12/26/17 12/26/17 07:00 15:00 23:00 07:00 15:00 23:00 Intake Total 1472 ml 1600 ml 750 ml Output Total 400 ml 2200 ml 1250 ml Balance 1072 ml -600 ml -500 ml Intake Oral 480 ml 1600 ml 750 ml IV Total 992 ml Output Urine Total 400 ml 2200 ml 1250 ml # Bowel Movements 0 4 0 Result Diagram: 12/24/17 0453 12/24/17 0453 Objective Remarks - GENERAL: This is a well-nourished 37 years old in no acute distress CARDIOVASCULAR: Regular rhythm without murmurs, gallops, or rubs. RESPIRATORY: Fair air entry bilaterally. No wheezes, rales, or rhonchi. GASTROINTESTINAL: Abdomen soft, non-tender, nondistended. Normal active bowel sounds MUSCULOSKELETAL: Extremities without clubbing, cyanosis, or edema. NEURO: Awake alert oriented 3 Moves all ext x4 A/P Problem List: (1) Alcohol intoxication ICD Code: F10.929 - Alcohol use, unspecified with intoxication, unspecified Status: Acute Assessment and Plan Mr. Blake returned to the hospital after an evaluation on 12/22/2017 due to generalized weakness, alcohol intoxication. Patient's alcohol level was over 400 on 12/22/2017 and today (12/23/2017) 151. - Acute alcohol intoxication - Acute Alcohol withdrawal watch out for DT - Patient is currently maintaining his airway. - However, worsening of his clinical condition to require intubation remains a possibility. -No signs of respiratory distress -Continue observing in ICU today. -Stat applying CIWA protocol including Ativan - Mg 2.6. Start Thiamine IV 100mg Qday X 3 and folic acid if possible. - Librium PRN. 12/25: Tachycardia improved now in the 90s, awake alert oriented mental status is better however he gets agitated and he isn't restrained Discussed with the nurse in ICU 12/26: Tachycardia and symptoms of alcohol withdrawal improved however patient still get agitated he has a history of bipolar, I instructed the nurse to call his mother and get the list of the bipolar medication he is on(latuda , Lamictal , lorazepam, Celexa) psychiatry consult appreciated, continues to a protocol, Haldol 5 mg every 8 hours for agitation, will transfer out of the ICU to [facility] floor with telemetry Rosario Campos MD Dec 26, 2017 13:04
[2017-12-26] MEDS: THIAMINE HCL 100 MG TAB PO SCH (13:24)
[2017-12-26] MEDS ORDERED: CITALOPRAM HYDROBROMIDE 20 MG TAB PO SCH (14:00)
[2017-12-26] MEDS ORDERED: lamoTRIgine 25 MG TAB PO SCH (14:00)
[2017-12-26] MEDS ORDERED: lamoTRIgine 25 MG TAB PO ONE (15:30)
[2017-12-26] MEDS ORDERED: CITALOPRAM HYDROBROMIDE 20 MG TAB PO ONE (15:30)
[2017-12-26] MEDS ORDERED: LURASIDONE 80 MG TAB PO ONE (15:30)
--- NOTE | 2017-12-26 18:32 | RADRPT ---
EXAM DATE/TIME: 12/26/2017 18:07 [facility] COMPARISON: No previous studies available for comparison. INDICATIONS : Right anterior upper rib pain. MEDICAL HISTORY : None. SURGICAL HISTORY : None. ENCOUNTER: Initial ACUITY: 1 day PAIN SCORE: 8/10 LOCATION: Right upper chest FINDINGS: The lungs are clear without infiltrate, nodule, or mass. There is no appreciable pleural effusion fo r technique. Heart and mediastinum are unremarkable. CONCLUSION: No acute cardiopulmonary disease. Blaise Tyler MD on December 26, 2017 at 18:30 Board Certified Radiologist. This report was verified electronically.
[2017-12-26] MEDS: HALOPERIDOL LACTATE 5 MG/ML AMP IM PRN (20:39)
[2017-12-27] VITALS (9 sets, daily range): BP systolic 107–132; BP diastolic 59–82; PULSE 74–95; RESP 17–20; TEMP 97.1–98.5; O2SAT 97–99
[2017-12-27] MEDS: CHLORHEXIDINE GLUCONATE 2 % 1 PACK (2 CLOTHS)(taper/protocol) TOPICAL SCH (04:00)
[2017-12-27] MEDS: FOLIC ACID 1 MG TAB PO SCH (09:00)
[2017-12-27] MEDS ORDERED: lamoTRIgine 25 MG TAB PO SCH (09:00)
[2017-12-27] MEDS: SODIUM CHLORIDE 0.9% FLUSH 10 ML FLUSH IV FLUSH SCH ×2 (09:00→20:56)
[2017-12-27] MEDS: THIAMINE HCL 100 MG TAB PO SCH (10:25)
[2017-12-27] MEDS: CITALOPRAM HYDROBROMIDE 20 MG TAB PO SCH (10:25)
[2017-12-27] MEDS: LURASIDONE 80 MG TAB PO SCH (10:25)
[2017-12-27] MEDS: LORazepam 2 MG TAB PO PRN (10:26)
[2017-12-27] MEDS ORDERED: PILL SPLITTER OTHER PRN (11:45)
--- NOTE | 2017-12-27 13:34 | HHI.PYPN ---
Subjective Remarks Patient was seen today for psychiatric reevaluation, chart was reviewed, case discussed with nurse in charge. On psychiatric evaluation the patient is calm, cooperative, he reports that he feels much better today. The patient today is fully oriented 3, without any attention deficit, no fluctuation of consciousness, patient is able to share his plans of going back to [place] to continue his job in his life, he told me that he has history of bipolar disorder that he has been in Lurasidone 80 mg twice a day, Lamictal 100 mg daily and citalopram 20 mg. He has an outpatient psychiatrist in [place]. At this moment he reports good mood, denies depression, he denies anxiety, he denies herbie and psychosis. He denies suicidal and homicidal ideation, he denies visual and auditory hallucinations. He is logical, coherent and relevant. He rated to continue medical recommendations and medications. Review of Systems Constitutional: DENIES: Diaphoretic episodes, Fatigue, Fever, Weight gain, Weight loss, Chills, Dizziness, Change in appetite, Night Sweats Endocrine: DENIES: Heat/cold intolerance, Polydipsia, Polyuria, Polyphagia Eyes: DENIES: Blurred vision, Diplopia, Eye inflammation, Eye pain, Vision loss , Photosensitivity, Double Vision Ears, nose, mouth, throat: DENIES: Tinnitus, Hearing loss, Vertigo, Nasal discharge, Oral lesions, Throat pain, Hoarseness, Ear Pain, Running Nose, Epistaxis, Sinus Pain, Toothache, Odynophagia Respiratory: DENIES: Apneas, Cough, Snoring, Wheezing, Hemoptysis, Sputum production, Shortness of breath Cardiovascular: DENIES: Chest pain, Palpitations, Syncope, Dyspnea on Exertion , PND, Lower Extremity Edema, Orthopnea, Claudication Gastrointestinal: DENIES: Abdominal pain, Black stools, Bloody stools, Constipation, Diarrhea, Nausea, Vomiting, Difficulty Swallowing, Anorexia Musculoskeletal: DENIES: Joint pain, Muscle aches, Stiffness, Joint Swelling, Back pain, Neck pain Hematologic/lymphatic: DENIES: Bruising, Lymphadenopathy Immunologic/allergic: DENIES: Eczema, Urticaria Neurologic: DENIES: Abnormal gait, Headache, Localized weakness, Paresthesias, Seizures, Speech Problems, Tremor, Poor Balance Psychiatric: DENIES: Anxiety, Confusion, Mood changes, Depression, Hallucinations, Agitation, Suicidal Ideation, Homicidal Ideation, Delusions Mental Status Examination Appearance: Appropriate Consciousness: Alert Orientation: x4 Motor Activity: Normal gait Speech: Unremarkable Language: Adequate Fund of Knowledge: Adequate Attention and Concentration: Adequate Memory: Unremarkable Mood: Appropriate Affect: Appropriate Thought Process & Associations: Intact Thought Content: Appropriate Hallucination Type: None Delusion Type: None Suicidal Ideation: No Suicidal Plan: No Suicidal Intention: No Homicidal Ideation: No Homicidal Plan: No Homicidal Intention: No Insight: Fair Judgment: Impulsive Results Vitals/IOs Vital Signs Date Time Temp Pulse Resp B/P (MAP) Pulse Ox O2 Delivery O2 Flow Rate FiO2 12/27/17 08:00 97.4 85 17 108/74 (85) 99 12/26/17 19:36 21 12/23/17 18:15 Room Air Intake and Output 12/27/17 12/27/17 12/28/17 08:00 16:00 00:00 Output Total 100 ml Balance -100 ml Assessment & Plan Problem List: (1) Alcohol abuse with alcohol-induced mood disorder ICD Codes: F10.14 - Alcohol abuse with alcohol-induced mood disorder (2) Bipolar disorder, unspecified ICD Codes: F31.9 - Bipolar disorder, unspecified Assessment & Plan: The patient does not present any neuropsychiatric symptoms that requires an immediate psychiatric attention. Will restart his outpatient psychotropic regimen, Lurasidone 80 mg twice a day, citalopram 20 mg, Lamictal 25 mg twice a day. The patient does not meet criteria for involuntary psychiatric admission at this moment. No withdrawal symptoms present at this moment. He denies suicidal and homicidal ideation, visual and auditory hallucinations. Brief supportive psychotherapy and motivation provided. Assessment & Plan Estimated LOS: days Justification for Cont. Inpt. No psychiatric admission indicated at this moment. Dany Garcia MD Dec 27, 2017 13:34
[2017-12-27] MEDS ORDERED: LURASIDONE 80 MG TAB PO SCH (14:00)
[2017-12-27] MEDS: lamoTRIgine 100 MG TAB PO SCH (14:55)
[2017-12-27] MEDS: ACETAMINOPHEN 325 MG TAB PO PRN ×2 (14:56→22:02)
[2017-12-27] MEDS: LORazepam 1 MG TAB PO PRN ×3 (14:56→21:56)
--- NOTE | 2017-12-27 15:48 | HHI.PR ---
Subjective Remarks Resting in bed comfortably, answers simple questions Resumed his psych home meds Monitor of her strain Objective Vitals Vital Signs Date Time Temp Pulse Resp B/P (MAP) Pulse Ox O2 Delivery O2 Flow Rate FiO2 12/27/17 15:25 90 12/27/17 14:33 90 12/27/17 12:00 97.6 74 17 112/75 (87) 97 12/27/17 08:00 97.4 85 17 108/74 (85) 99 12/27/17 06:05 97.3 89 18 107/70 (82) 97 12/27/17 03:44 80 12/27/17 01:54 97.1 79 17 132/82 (99) 99 12/27/17 01:44 85 12/26/17 20:00 98.2 93 20 131/81 (98) 12/26/17 19:36 21 12/26/17 16:00 98.4 92 18 136/77 (96) I/O 12/26/17 12/26/17 12/26/17 12/27/17 12/27/17 12/27/17 06:59 14:59 22:59 06:59 14:59 22:59 Intake Total 750 ml 1200 ml Output Total 1250 ml 2000 ml 100 ml Balance -500 ml -800 ml -100 ml Intake Oral 750 ml 1200 ml Output Urine Total 1250 ml 2000 ml 100 ml # Bowel Movements 0 3 Result Diagram: 12/24/17 0453 12/24/17 045 Objective Remarks - GENERAL: This is a well-nourished 37 years old in no acute distress CARDIOVASCULAR: Regular rhythm without murmurs, gallops, or rubs. RESPIRATORY: Fair air entry bilaterally. No wheezes, rales, or rhonchi. GASTROINTESTINAL: Abdomen soft, non-tender, nondistended. Normal active bowel sounds MUSCULOSKELETAL: Extremities without clubbing, cyanosis, or edema. NEURO: Awake alert oriented 3 Moves all ext x4 A/P Problem List: (1) Alcohol intoxication ICD Code: F10.929 - Alcohol use, unspecified with intoxication, unspecified Status: Acute Assessment and Plan Mr. Blake returned to the hospital after an evaluation on 12/22/2017 due to generalized weakness, alcohol intoxication. Patient's alcohol level was over 400 on 12/22/2017 and today (12/23/2017) 151. - Acute alcohol intoxication - Acute Alcohol withdrawal watch out for DT - Patient is currently maintaining his airway. - However, worsening of his clinical condition to require intubation remains a possibility. -No signs of respiratory distress -Continue observing in ICU today. -Stat applying CIWA protocol including Ativan - Mg 2.6. Start Thiamine IV 100mg Qday X 3 and folic acid if possible. - Librium PRN. 12/25: Tachycardia improved now in the 90s, awake alert oriented mental status is better however he gets agitated and he isn't restrained Discussed with the nurse in ICU 12/26: Tachycardia and symptoms of alcohol withdrawal improved however patient still get agitated he has a history of bipolar, I instructed the nurse to call his mother and get the list of the bipolar medication he is on(latuda , Lamictal , lorazepam, Celexa) psychiatry consult appreciated, continues to a protocol, Haldol 5 mg every 8 hours for agitation, will transfer out of the ICU to [facility] floor with telemetry 12/27: Alcohol withdrawal improved, we resumed his psych home meds, will verify that with the psychiatry continued to be stable patient can be probably discharged tomorrow Discharge Planning Soon if continue to be stable Rosario Campos MD Dec 27, 2017 15:48
[2017-12-27] MEDS: chlordiazePOXIDE 25 MG CAP PO PRN (20:56)
--- NOTE | 2017-12-27 22:11 | EKG ---
Date Performed: 12/26/2017 Time Performed: 19:49:59 PTAGE: 37 years EKG: Sinus rhythm POSSIBLE LEFT ATRIAL ENLARGEMENT BORDERLINE ECG NO PREVIOUS TRACING DOCTOR: Dev Keen Interpretating Date/Time 12/27/2017 22:03:30
[2017-12-28] MEDS: CHLORHEXIDINE GLUCONATE 2 % 1 PACK (2 CLOTHS)(taper/protocol) TOPICAL SCH (01:13)
[2017-12-28] MEDS: LORazepam 2 MG TAB PO PRN (02:32)
[2017-12-28 04:00] VITALS: BP 117/73; PULSE 86; RESP 20; TEMP 98.5; O2SAT 97
[2017-12-28] MEDS: chlordiazePOXIDE 25 MG CAP PO PRN (06:16)
[2017-12-28 08:00] VITALS: BP 120/66; PULSE 98; RESP 18; TEMP 97.9; O2SAT 97
[2017-12-28] MEDS: THIAMINE HCL 100 MG TAB PO SCH (08:08)
[2017-12-28] MEDS: LORazepam 1 MG TAB PO PRN ×2 (08:08→20:45)
[2017-12-28] MEDS: LURASIDONE 80 MG TAB PO SCH (08:08)
[2017-12-28] MEDS: CITALOPRAM HYDROBROMIDE 20 MG TAB PO SCH (08:08)
[2017-12-28] MEDS: SODIUM CHLORIDE 0.9% FLUSH 10 ML FLUSH IV FLUSH SCH ×3 (08:09→20:49)
[2017-12-28] MEDS: lamoTRIgine 100 MG TAB PO SCH (08:09)
[2017-12-28 09:41] VITALS: PULSE 94
[2017-12-28] MEDS ORDERED: THIA100 PO (09:49)
[2017-12-28] MEDS ORDERED: CHLO25CA9 PO (09:49)
[2017-12-28] MEDS ORDERED: LAMO100 PO (09:49)
[2017-12-28] MEDS ORDERED: CELE20TA PO (09:49)
[2017-12-28] MEDS ORDERED: LURA80 PO (09:49)
[2017-12-28] MEDS ORDERED: NICOTINE 14 MG/24 HR PATCH T-DERMAL SCH (10:00)
[2017-12-28 12:00] VITALS: BP 139/84; PULSE 98; RESP 18; TEMP 98.1; O2SAT 98
--- NOTE | 2017-12-28 15:08 | HHI.PR ---
Objective Vitals Vital Signs Date Time Temp Pulse Resp B/P (MAP) Pulse Ox O2 Delivery O2 Flow Rate FiO2 12/28/17 12:00 98.1 98 18 139/84 (102) 98 12/28/17 09:41 94 12/28/17 08:00 97.9 98 18 120/66 (84) 97 12/28/17 04:00 86 12/28/17 04:00 98.5 86 20 117/73 (88) 97 12/27/17 20:00 98.5 95 20 124/59 (80) 97 12/27/17 15:25 90 I/O 12/27/17 12/27/17 12/27/17 12/28/17 12/28/17 12/28/17 07:00 15:00 23:00 07:00 15:00 23:00 Output Total 100 ml 700 ml Balance -100 ml -700 ml Output Urine Total 100 ml 700 ml # Bowel Movements 0 Result Diagram: 12/24/1745212/24/17452 Objective Remarks - GENERAL: This is a well-nourished 37 years old in no acute distress CARDIOVASCULAR: Regular rhythm without murmurs, gallops, or rubs. RESPIRATORY: Fair air entry bilaterally. No wheezes, rales, or rhonchi. GASTROINTESTINAL: Abdomen soft, non-tender, nondistended. Normal active bowel sounds MUSCULOSKELETAL: Extremities without clubbing, cyanosis, or edema. NEURO: Awake alert oriented 3 Moves all ext x4 A/P Problem List: (1) Alcohol intoxication ICD Code: F10.929 - Alcohol use, unspecified with intoxication, unspecified Status: Acute Assessment and Plan Mr. Blake returned to the hospital after an evaluation on 12/22/2017 due to generalized weakness, alcohol intoxication. Patient's alcohol level was over 400 on 12/22/2017 and today (12/23/2017) 151. - Acute alcohol intoxication - Acute Alcohol withdrawal watch out for DT - Patient is currently maintaining his airway. - However, worsening of his clinical condition to require intubation remains a possibility. -No signs of respiratory distress -Continue observing in ICU today. -Stat applying CIWA protocol including Ativan - Mg 2.6. Start Thiamine IV 100mg Qday X 3 and folic acid if possible. - Librium PRN. 12/25: Tachycardia improved now in the 90s, awake alert oriented mental status is better however he gets agitated and he isn't restrained Discussed with the nurse in ICU 12/26: Tachycardia and symptoms of alcohol withdrawal improved however patient still get agitated he has a history of bipolar, I instructed the nurse to call his mother and get the list of the bipolar medication he is on(latuda , Lamictal , lorazepam, Celexa) psychiatry consult appreciated, continues to a protocol, Haldol 5 mg every 8 hours for agitation, will transfer out of the ICU to [facility] floor with telemetry 12/27: Alcohol withdrawal improved, we resumed his psych home meds, will verify that with the psychiatry continued to be stable patient can be probably discharged tomorrow Discharge Planning Soon if continue to be stable Rosario Campos MD Dec 28, 2017 15:07
[2017-12-28 16:00] VITALS: BP 131/79; PULSE 91; RESP 18; TEMP 97.9; O2SAT 97
[2017-12-28 20:00] VITALS: BP 110/67; PULSE 77; PULSE 96; RESP 18; TEMP 97; O2SAT 97
[2017-12-28] MEDS: ACETAMINOPHEN 325 MG TAB PO PRN (20:47)
[2017-12-29] MEDS: LORazepam 1 MG TAB PO PRN (00:46)
[2017-12-29 01:00] VITALS: BP 135/63; PULSE 81; RESP 20; TEMP 98.6; O2SAT 96
[2017-12-29] MEDS ORDERED: REMOVE OLD PATCH T-DERMAL SCH (09:00)
== END 2017-12-29 03:45 | disposition home or self-care (01) | DRG 897 ==
LOC: NEPC 06:44 → NEDA 14:21 → OBSVTOIN 14:53 → HIMN 19:25 → N05A 12-26 23:43
PROVIDERS: ADMIT Hospitalist; ATTEND Hospitalist
DX: F10.229 Alcohol dependence with intoxication, unspecified (principal); F10.239 Alcohol dependence with withdrawal, unspecified; F10.24 Alcohol dependence with alcohol-induced mood disorder; Y90.6 Blood alcohol level of 120-199 mg/100 ml; Z91.14 Patient's other noncompliance with medication regimen; F31.9 Bipolar disorder, unspecified; Z78.1 Physical restraint status
CPT/HCPCS: 70450; 71045; 80048; 80307; 82746; 83735; 84443; 85025; 87641; 93005; 96372; 96374; 96376; J1630; J2060; J3411; J7030; P9612